=== PATIENT | female | born 1990 | race Caucasian/White ===

== ENCOUNTER 2024-11-14 10:48 | Outpatient (CLI) | payer OTHER, SELFPAY ==
--- NOTE | ~2024-11-14 | US_ITS ---
Pelvic ultrasound. Clinical History: First trimester , establish dates and viability Technique: Realtime transabdominal and transvaginal scanning of the pelvis was performed. Color flow Doppler and Doppler spectral analysis were performed. Findings: The uterus is anteverted, and contains an intrauterine gestation. [place]-rump length of 4.3 cm corresponds to an estimated gestational age of 11 weeks 1 day. heart rate is 153 bpm. Possib le ill-defined uterine fibroids. The right ovary measures 2.7 x 2.3 x 3.0 cm. No significant right ovarian or adnexal mass is seen. The left ovary measures 3.1 x 1.4 x 2.9 cm. No significant left ovarian or adnexal mass is seen. There is no evidence of free fluid in the cul de sac. Impression: Intrauterine gestation, with estimated gestational age of 11 weeks 1 day. heart rate is 153 bpm . Sonographic TIERRA is 06/04/2025. Reviewed, dictated and finalized at location . Impression: Intrauterine gestation, with estimated gestational age of 11 weeks 1 day. heart rate is 153 bpm. Sonographic TIERRA is 06/04/2025.
== END 2024-11-14 10:49 | disposition home or self-care (01) ==
LOC: MICIMG 10:49
PROVIDERS: PCP Nurse Practitioner Family; Visit Provider Nurse Practitioner Family
DX: O36.80X0 Pregnancy with inconclusive fetal viability, not applicable or unspecified (principal); Z3A.11 11 weeks gestation of pregnancy
CPT/HCPCS: 76801; 76817

== ENCOUNTER 2024-11-25 15:47 | Outpatient (CLI) | payer OTHER, SELFPAY ==
--- NOTE | ~2024-11-25 | US_ITS ---
EXAMINATION: US OB <= 14 weeks fetus DATE: 11/25/2024 16:08 INDICATION: Bleeding and cramping at the end of the first trimester TECHNIQUE: Real-time pelvic ultrasound utilizing both a transvaginal and transabdominal probe was pe rformed. The interpreting radiologist was not present for the study. COMPARISON: None. FINDINGS: The uterus measures 15.3 x 3.3 x 10.4 cm. There is an intrauterine gestational sac. A yolk sac and f etal pole are identified. The crown rump length measures 6.3 cm, which correlates with an estimated g estational age of 12 weeks and 5 days which is exactly concordant with assessment of gestational age based on ultrasound performed on 11/14/2024. heart motion is identified measuring 158 beats per m inute (bpm) by M-mode Doppler. There are couple small anechoic coracoid hematomas, one position along the caudal margin of the gestational sac measures 3.6 x 2.4 x 0.6 cm and the second along the right fundal side of the sac measuring 2.0 x 0.7 x 0.7 cm. There is a 3.5 x 1.7 x 3.8 cm heterogeneously hy poechoic region along the inner margin of the anteriorly developing placenta located between the edge of the placenta and the cord insertion likely related to extension of the subchorionic hematoma. The right and left ovaries are not visualized. There is no free fluid in the pelvis. IMPRESSION: 1. Single living fetus with heart rate of 158 bpm. 2. [place]-rump length of 6.3 cm which is exactly concordant with the previously estimated gestational age by ultrasound of 12 weeks 5 day(s) with ultrasound estimated date of delivery (TIERRA) of 06/04/2025. 3. Couple small subchorionic hematomas with extension of some of the hemorrhage along the superficial margin of the anterior developing placenta. Reviewed, dictated and finalized at location A. IMPRESSION: 1. Single living fetus with heart rate of 158 bpm. 2. [place]-rump length of 6.3 cm which is exactly concordant with the previously estimated gestational age by ultrasound of 12 weeks 5 day(s) with ultrasound es timated date of delivery (TIERRA) of 06/04/2025. 3. Couple small subchorionic hematomas with extension of some of the hemorrhage along the superficial margin of the anterior developing placenta.
== END 2024-11-25 15:48 | disposition home or self-care (01) ==
LOC: MICIMG 15:48
PROVIDERS: PCP Nurse Practitioner Family; Visit Provider Nurse Practitioner Family
DX: O41.8X10 Other specified disorders of amniotic fluid and membranes, first trimester, not applicable or unspecified (principal); Z3A.00 Weeks of gestation of pregnancy not specified
CPT/HCPCS: 76801

== ENCOUNTER 2024-11-28 10:46 | Outpatient (CLI) | payer OTHER, SELFPAY ==
--- OUTSIDE RECORDS SUMMARY | 2024-11-28 11:03 | XMS_ITS | Clinical Summary ---
Author Organization [facility] Address [address] [place] [address] Care Team Providers Care Educational Technology Coordinator Name Role Phone Sarah Roger PA-C Primary Care Provider [phone] Barry Pollack MD Unavailable [phone] Dina Hawkins Unavailable [phone] Mando Waite DO Unavailable Allergies Active Allergy Reactions Criticality Noted Date Comments Beeswax Rash Low 05/07/2024 Burning throat, chest tightness, headache Cinnamon Itching 09/05/2023 Dermatological Products, Misc. Other (see comment) 07/03/2023 Cinnamic aldehyde Propolis Other (see comment) 07/03/2023 Seen on patch testing Medications famotidine (PEPCID) 40 MG tabletIndicatio ns:Epigastric pain,RUQ pain Take 1 tablet (40 mg total) by mouth nightly at bedtime. 30 tablet 2 4 Active omeprazole (PRILOSEC) 40 MG capsuleIndicati ons:RUQ pain Take 1 capsule (40 mg total) by mouth every morning. 30 capsule 2 4 Active EPINEPHrine 0.3 MG/0.3ML injectionIndica tions:Anaphylax is Inject 0.3 mLs (0.3 mg total) into the muscle as needed for Anaphylaxis. 0.3 mg sc/intramuscular x 1 for anaphylactic reaction. May repeat dose x 1 after 5-15 mins. 1 each 1 4 Active Active Problems Problem Noted Date Diagnosed Date Right upper quadrant abdominal pain 12/22/2023 Compression fracture of thor acic vertebra with routine healing 10/02/2019 Thyroid nodule 06/26/2019 Overview (06/26/2019): repeat thyroid us in 1 year Chronic gastritis Immunizations Immunization Administration Dates Next Due Dtap 08/05/1997 Dtap (Acel-Immune) 03/07/1994, 3,1992,1992 Dtap (Generic) 03/07/1994, 3,1992,1992 HPV GARDASIL 9-VALENT 06/21/2019 Hepatitis A (Havrix 1440 El.U) 06/21/2019 Hepatitis B 03/07/1994,1992,1992 Hib Vaccine, Prp-Omp 11/23/1993,02/24/19 93,1992,1992 Influenza Adult (Generic) 03/02/2023,02/07/2022 MMR 08/05/1997,11/23/1993 MODERNA COVID-19 (12+) MRNA, LNP-S, PF, 100 MCG/ 0.5 ML DOSE 07/29/2020,07/01/2020 Opv 08/05/1997, 4,1992,1992 Td (Tenivac) preservative free 12/11/2006 Tdap (Adacel) 09/21/2019 Tdap (Generic) 11/21/2014 Family History Medical History Relation Comments Cancer Maternal Grandmother bone, lung, brain Diabetes Maternal Grandmother mvp Mother Relation Status Comments Maternal Grandmother Mother Social History Tobacco Use Types Packs/Day Years Used Date Smoking Tobacco: Never Smokeless Tobacco: Never Tobacco Cessation:Counseling Given: No Alcohol Use Standard Drinks/Week Comments Not Currently 0 (1 standard drink = 0.6 oz pur e alcohol) AUDIT-C Answer Date Recorded Frequency of Alcohol Consumption 2-4 times a mon th 06/21/2019 Average Number of Drinks 1 or 2 020 Frequency of Binge Drinking Not on file 11/2019 PHQ-2 Answer Date Recorded Patient Health Questionnaire-2 Score 0 06/27/2024 Comments No Sex and Gender Information Value Date Recorded Sex Assigned at Female 06/22/2024 9:35 PM DASHBOARD DEVELOPER Legal Sex Female 7:07 PM CDT Gender Identity Not on file Sexual Orientation Not on file Last Filed Vital Signs Vital Sign Reading Time Taken Comments Blood Pressure 135/79 07/12/2024 7:24 AM DASHBOARD DEVELOPER Pulse 89 07/12/2024 7:24 AM DASHBOARD DEVELOPER Temperature 36.8 C (98.3 F) 06/27/2024 7:40 AM DASHBOARD DEVELOPER Respiratory Rate 16 06/27/2024 7:40 AM DASHBOARD DEVELOPER Oxygen Saturation 100% 07/12/2024 7:24 AM DASHBOARD DEVELOPER Inhaled Oxygen Concentration - - Weight 83.9 kg (185 lb) 07/12/2024 7:24 AM DASHBOARD DEVELOPER Height 172.7 cm (5' 8) 07/12/2024 7:24 AM DASHBOARD DEVELOPER Body Mass Index 28.13 07/12/2024 7:24 AM DASHBOARD DEVELOPER Plan of Treatment Health Maintenance Due Date Last Done Comments Cervical Cancer Screening Pap Smear (Age 30 to 64) Every 3 Years 1992 Cervical Cancer Screening with HPV 06/26/2019 HPV Vaccines (2 - 3-dose series) 07/19/2019 06/21/2019 Annual Physical 12/22/2021 12/22/2020 Cervical Cancer Screening Pap with HPV Testing (Age 30 to 64) Every 5 Years 2022 06/25/2019 COVID-19 Vaccine ( season) 2024 07/29/2020, 07/01/2020 DTaP, Tdap and Td Vaccines (9 - Td or Tdap) 09/20/2029 09/21/2019, 05/25/2018, 11/21/2014, Additional history exists Meningococcal Vaccine Aged Out 05/25/2018 No kashmir cristy eligible based on patient's age to complete this topic Hepatitis B Vaccines Completed 12/20/2018, 07/16/2018, 05/30/2018, Additional history exists Hepatitis C Completed 09/05/2023, 07/09/2021, 06/24/2019 PHQ-2 (Physician [place]) Completed 06/27/2024 Meningococcal B Vaccine Aged Out No l onger eligible based on patient's age to complete this topic Pneumococcal Vaccine: Pediatrics (0 to 5 Years) and At-Risk Patients (6 to 49 Years) Aged Out No longer eligible based on patient's age to complete this topic RSV Immunizations Under 20 Months Aged Out No longer eligible based on patient's age to complete this topic Procedures Procedure Name Priority Date/Time Associated Diagnosis Comments HEPATITIS C ANTIBODY Routine 09/05/2023 8:21 AM CDT Screen for sexually transmitted diseases OUTSIDE CYTOPATH CERV/VAG INTERPRET (PAP) Routine 06/25/2019 from Last 3 Months or Most Recently Relevant to Health Maintenance Results * HEPATITIS C ANTIBODY (09/05/2023 8:21 AM CDT) HEPATITIS C AB NON-REACTI VE NON-REACTI VE 09/05/2023 3:38 PM CDT [facility] 09/05/2023 8:21 AM CDT Sarah Roger PA-C LABORATORY Final Resu lt Performing Organization Address [facility] de Phone Number [facility] [address] [place] [address], * PAP SMEAR WITH HPV (06/25/2019) 06/25/2019 Documents Scanned SCANNING Edited Result - Final Performing Organization Address City/[facility]/ZIP Co de Phone Number [facility] ONBASE from Last 3 Months or Most Recently Relevant to Health Maintenance Insurance ARE Care Teams Educational Technology Coordinator Relationship Specialty Start Date End Date Sarah Roger PA-C [address] [facility] [address] [place] [address] PCP - General PHYSICIAN NURSING RESIDENT 06/20/19 Barry Pollack MD [address] [facility] [address] [place], [place] [id number] OBGYN 06/21/19 Dina Hawkins PA [address] [place] [id number] PHYSICIAN NURSING RESIDENT 07/03/23 Mando Waite DO [address] [place] [id number] Surgeon ORTHOPAEDIC SURGERY 09/05/23
--- OUTSIDE RECORDS SUMMARY | 2024-11-28 11:03 | XMS_ITS | Encounter Summary ---
Author Organization [facility] Address [facility] [place] [address] Care Team Providers Care Electrical Service Technician Name Role Phone Sarah Roger PA-C Primary Care Provider [phone] Barry Pollack MD Unavailable Dina Hawkins Unavailable Mando Waite DO Unavailable Encounter Details Date Type Department Care Team (Late st Contact Info) Description 11/17/[address] [facility] [address] [place] [address] Sarah Roger PA-C [address] [place] [address] Question regarding CHLAM/GC/TRICHOMONAS PROFILE Social History Tobacco Use Types Packs/Day Years Used Date Smoking Tobacco: Never Smokeless Tobacco: Never Alcohol Use Standard Drinks/Week Comments Not Currently 0 (1 standard drink = 0.6 oz pur e alcohol) AUDIT-C Answer Date Recorded Frequency of Alcohol Consumption 2-4 times a mon06/21/2019 Average Number of Drinks 1 or 2 020 Frequency of Binge Drinking Not on file 11/2019 PHQ-2 Answer Date Recorded PHQ-2 Score - If the patient scores above 3, please move on to questions 3-9 0 11/16/2021 Comments No Sex and Gender Information Value Date Recorded Sex Assigned at Female 06/22/2024 9:35 PM BATTERY TESTER Legal Sex Female 7:07 PM CDT Gender Identity Not on file Sexual Orientation Not on file COVID-19 Exposure Response Date Recorded In the last 10 days, have yo u been in contact with someone who was confirmed or suspected to have Coronavirus/COVID-19? No / Unsure 11/16/2021 7:52 AM CDT documented as of this encounter Plan of Treatment Not on file documented as of this encounter Visit Diagnoses Not on filedocumented in this encounter Additional Health Concerns Infection Onset Date Last Indicated Resolved Time COVID-19 Rule Out 06/22/2024 06/22/2024 06/22/2024 10:55 PM BATTERY TESTER Assessment Noted Time PHQ-9 Depression Total Score: 0 12/23/19 21 9:57 AM CDT documented as of this encounter Care Teams Electrical Service Technician Relationship Specialty Start Date End Date Sarah Roger PA-C [address] [facility] [address] [place] [address] PCP - General PHYSICIAN PHILOSOPHY SPECIALIST 06/20/19 Barry Pollack MD [address] [facility] [address] [place], [place] [phone] OBGYSue 06/21/19 Dina Hawkins PA [address] [place] [address] PHYSICIAN PHILOSOPHY SPECIALIST 07/03/23 Mando Waite DO [address] [place] [address] Surgeon ORTHOPAEDIC SURGERY 09/05/23 documented as of this encounter
--- OUTSIDE RECORDS SUMMARY | 2024-11-28 11:03 | XMS_ITS | Clinical Summary ---
Author Organization [facility] Address [address] [address] Phone Care Team Providers Care Hair Spring Cutter Name Role Phone Khloe Tamayo APN, HALL SUPERVISOR Primary Care Provide r Allergies Active Allergy Reactions Criticality Noted Date Comments Cinnamon Rash 05/07/2024 Headache, burning throat, chest tightness Dermatological Products, Misc. Other (see Comments) 07/03/2023 Cinnamic aldehyde Propolis Itching,Other (see Comments) 07/03/2023 Seen on patch testing Beeswax Rash 05/07/2024 Burning throat, chest tightness, headache Medications famotidine (PEPCID) 40 MG Tablet Take 40 mg by mouth every evening. Active omeprazole (PriLOSEC) 40 MG CAPSULE DELAYED RELEASE Take 40 mg by mouth daily. Active EPINEPHrine (EPIPEN) 0.3 MG/0.3ML Solution Auto-injector 0.3 mg by Subcutaneous route once as needed. Active Active Problems Problem Noted Date Diagnosed Date Primary osteoarthritis of right shoulder 024 Shoulder arthritis 05/07/2024 Chronic right shoulder pain 08/15/2023 Resolved Problems Problem Noted Date Diagnosed Date Resolved Date Chronic gastritis 05/07/2024 05/07/2024 Right upper quadrant abdominal pain 12/22/2023 05/07/2024 Impingement syndrome of right shoulder region 09/04/1905/07/2024 Compression fracture of thor acic vertebra with routine healing 10/02/2019 05/07/2024 Thyroid nodule 06/26/2019 05/07/2024 Overview (05/07/2024): repeat thyroid us in 1 year Immunizations Immunization Administration Dates Next Due Adenovirus Vaccine 05/30/2018 Anthrax Vaccine 01/19/2023, 3,02/18/2022,01/21 DTAP VACCINE 08/05/1997 DTP Vaccine 03/07/1994, 3,1992,09/23 Hepatitis A And Hepatitis B Vaccine 12/20/2018,0 07/16/2018,05/30/2018 Hepatitis A Vaccine 06/21/2019 Hepatitis B Vaccine, Pediatric/adolescent 03/07/1994,1992,1992 Hib (PRP-OMP) Vaccine 1992 Hib Vaccine,unspecified Formulation 11/12,09/23/1993,02/24/1993,12/03 Human Papillomavirus (HPV) 9 -valent Vaccine 06/21/2019 Inactivated Polio Vaccine 05/25/2018 Influenza Vaccine, Quadrivalent, PF /10/2021,01/29/2021,05/11/2020,05/25 Influenza Vaccine,unspecifie d Formulation 03/02/2023,03/04/2019 MMR Vaccine 08/05/1997,11/23/1993 Meningococcal Vaccine 05/25/2018 OPV 08/05/1997, 4,1992,09/23 Oral Polio Vaccine, Unspecif ied Formulation 08/05/1997,03/07/1994,1992,09/23 TDAP Vaccine 09/21/2019,05/25/2018,11/21/2014 Td Vaccine (preservative free) 12/11/2006 Typhoid, ViCPs 02/07/2023,01/23/2021 Yellow Fever Vaccine 01/23/2021 Social History Tobacco Use Types Packs/Day Years Used Date Smoking Tobacco: Never Smokeless Tobacco: Never Tobacco Cessation:Counseling Given: Not Answered Alcohol Use Standard Drinks/Week Comments Yes 0 (1 standard drink = 0.6 oz pur e alcohol) [facility] Utilities Answer Date Recorded In the past 12 months has e electric, gas, oil, or water company threatened to shut off services in your home? No 06/18/2024 Social Connection and Isolation Panel Answer Date Recorded In a typical week, how many times do you talk on the phone with family, friends, or neighbors? Twice a week 06/18/19 How often do you get togethe r with friends or relatives? Once a week 06/18/2024 How often do you attend chur ch or sabianist services? 1 to 4 times per year 06/18/2024 Do you belong to any clubs o r organizations such as jainism groups, unions, fraternal or athletic groups, or school groups? No 06/18/2024 How often do you attend meet ings of the clubs or organizations you belong to? Never 06/18/2024 Are you , , di vorced, , never , or living with a partner? 06/18/2024 AUDIT-C Answer Date Recorded Q1: How often do you have a drink containing alc ohol? Monthly or less 06/18/2024 Q2: How many drinks containi ng alcohol do you have on a typical day when you are drinking? 1 or 2 06/18/2024 Q3: How often do you have si x or more drinks on one occasion? Never 06/18/2024 Overall Financial Resource Strain (CARDIA) Answe r Date Recorded How hard is it for you to pa y for the very basics like food, housing, medical care, and heating? Not hard at all 06/18/2024 [facility] - Occupational Stress Questionnaire Answer Date Recorded Do you feel stress - tense, restless, nervous, or anxious, or unable to sleep at night because your mind is troubled all the time - these days? Not at all 06/18/2024 Exercise Vital Sign Answer Date Recorde d On average, how many days pe r week do you engage in moderate to strenuous exercise (like a brisk walk)? 5 days 06/18/2024 On average, how many minutes do you engage in exercise at this level? 40 min 06/18/2024 Hunger Vital Sign Answer Date Recorded Within the past 12 months, y ou worried that your food would run out before you got the money to buy more. Never true 06/18/19 25 Within the past 12 months, t he food you bought just didn't last and you didn't have money to get more. Never true 06/18/2024 PRAPARE - Transportation Answer Date Re corded In the past 12 months, has l ack of transportation kept you from medical appointments or from getting medications? No 08/2024 In the past 12 months, has l ack of transportation kept you from meetings, work, or from getting things needed for daily living? No 06/18/2024 Housing Stability Vital Sign Answer Damian e Recorded In the last 12 months, was t here a time when you were not able to pay the mortgage or rent on time? No 06/18/2024 In the past 12 months, how m any times have you moved where you were living? 0 06/18/2024 At any time in the past 12 m [facility], were you homeless or living in a halfway (including now)? No 06/18/2024 Comments No Sex and Gender Information Value Date Recorded Sex Assigned at Female 07/19/2024 9:34 AM SUPERVISORY LIFEGUARD Legal Sex Female 1:50 PM CDT Gender Identity Female 07/19/2024 9:34 AM SUPERVISORY LIFEGUARD Sexual Orientation Not on file Last Filed Vital Signs Vital Sign Reading Time Taken Comments Blood Pressure 121/74 06/20/2024 1:08 PM SUPERVISORY LIFEGUARD Pulse 65 06/20/2024 1:08 PM SUPERVISORY LIFEGUARD Temperature 36.6 C (97.9 F) 06/20/2024 1:08 PM SUPERVISORY LIFEGUARD Respiratory Rate - - Oxygen Saturation 100% 06/20/2024 1:08 PM SUPERVISORY LIFEGUARD Inhaled Oxygen Concentration - - Weight 84.3 kg (185 lb 12.8 oz) 06/20/2024 1:08 PM SUPERVISORY LIFEGUARD Height 172.7 cm (5' 8) 05/07/2024 9:16 AM SUPERVISORY LIFEGUARD Body Mass Index 28.25 05/07/2024 9:16 AM SUPERVISORY LIFEGUARD Plan of Treatment Health Maintenance Due Date Last Done Comments Pap Smear 2013 Human Papillomavirus (HPV) Immunization (2 - 3-dose series) 07/19/2019 06/21/2019 Cervical Cancer Screening (CCS) 2022 HPV/Cotest 2022 SARS-COV-2 Immunization ( season) 2024 07/29/2020, 07/01/2020 Influenza Immunization (#1) 01/13/202501/13, 03/02/2023, 02/07/2022, Additional history exists DTaP/Tdap/Td Immunization (9 - Td or Tdap) 09/20/2029 09/21/2019, 05/25/2018, 11/21/2014, Additional history exists Respiratory Syncytial Virus (RSV) Immunization (Adult) (1 - 1-dose 75+ series) 08/05/2067 Meningococcal Immunization (ACWY) Aged Out 05/25/2018 No longer eligible based on patient's age to complete this topic Hepatitis B Immunization Completed 019, 07/16/2018, 05/30/2018, Additional history exists TdaP Immunization Discontinued 09/21/2019, , 11/21/2014 Hepatitis C Virus (HCV) Screening Completed 09/05/2023 Pneumococcal Immunization Combined Aged Out No longer eligible based on patient's age to complete this topic Rotavirus Immunization Aged Out No lo nger eligible based on patient's age to complete this topic Insurance CLAIMS Care Teams Hair Spring Cutter Relationship Specialty Start Date End Date Khloe Tamayo APN, HALL SUPERVISOR [address] [place] [phone] PCP - General Orthopaedic Surgery 05/07/24
--- OUTSIDE RECORDS SUMMARY | 2024-11-28 11:03 | XMS_ITS | Encounter Summary ---
Author Organization [facility] Address [address] [place] [address] Phone Care Team Providers Care Leaf Coverer Name Role Phone Khloe Tamayo APN, COMMERCIAL OR INSTITUTIONAL CLEANER Primary Care Provide r Encounter Details Date Type Department Care Team (Late st Contact Info) Description 08/05/2024 Lab Requisition [facility] Laboratory Services [address] [facility] [place] [address] Alpesh Salinas MD [address] [place] [address] Encounter for general adult medical examination without abnormal findings Social History Tobacco Use Types Packs/Day Years Used Date Smoking Tobacco: Never Smokeless Tobacco: Never Alcohol Use Standard Drinks/Week Comments Yes 0 (1 standard drink = 0.6 oz pur e alcohol) [facility] Utilities Answer Date Recorded In the past 12 months has [employer], gas, oil, or water [employer] threatened to shut off services in your home? No 06/18/2024 Social Connection and Isolation Panel Answer Date Recorded In a typical week, how many times do you talk on the phone with family, friends, or neighbors? Twice a week 06/18/19 How often do you get togethe r with friends or relatives? Once a week 06/18/2024 How often do you attend chur or mormonism services? 1 to 4 times per year 06/18/2024 Do you belong to any clubs o r organizations such as orthodoxy groups, unions, fraternal or athletic groups, or [...] and heating? Not hard at all 06/18/2024 [facility] - Occupational Stress Questionnaire Answer Date Recorded [...] any time in the past 12 m [facility], were you homeless or living in a intermediate (including now)? No 06/18/2024 Comments No Sex and Gender Information Value Date Recorded Sex Assigned at Female 07/19/2024 9:34 AM CHEMICAL ECONOMIST Legal Sex Female 1:50 PM CDT Gender Identity Female 07/19/2024 9:34 AM CHEMICAL ECONOMIST Sexual Orientation Not on file documented as of this encounter Plan of Treatment Not on file documented as of this encounter Procedures Procedure Name Priority Date/Time Associated Diagnosis Comments CMP (COMPREHENSIVE METABOLIC PANEL) Routine 08/05/2024 8:22 AM CDT Encounter for general adult medical examination without abnormal findings HEMOGLOBIN A1C W/ ESTIMATED GLUCOSE Routine 08/05/2024 8:22 AM CDT Encounter for general adult medical examination without abnormal findings BILIRUBIN, INDIRECT WGH Routine 08/05/2024 8:22 AM CDT Encounter for general adult medical examination without abnormal findings CBC WITH AUTO DIFFERENTIAL Routine 08/05/2024 8:22 AM CDT Encounter for general adult medical examination without abnormal findings THYROID STIMULATING HORMONE (TSH) Routine 08/05/2024 8:22 AM CDT Encounter for general adult medical examination without abnormal findings LIPID PANEL Routine 08/05/2024 8:22 AM CDT Encounter for general adult medical examination without abnormal findings IRON (FE) Routine 08/05/2024 8:22 AM CDT Encounter for general adult medical examination without abnormal findings CMP (COMPREHENSIVE METABOLIC PANEL) Routine 08/05/2024 8:22 AM CDT Encounter for general adult medical examination without abnormal findings BILIRUBIN DIRECT (CONJUGATED) Routine 08/05/2024 8:22 AM CDT Encounter for general adult medical examination without abnormal findings documented in this encounter Results * HEMOGLOBIN A1C W/ ESTIMATED GLUCOSE (08/05/2024 8:22 AM CDT) HGB-A1C 4.9 4.0 - 6.0 % 08/05/2024 9:41 AM CDT [facility] Est Average Glucose 93.9 mg/dL 08/05/2024 9:41 AM CDT [facility] Blood No Phlebotomy Charged / Unknown 08/05/2024 8:22 AM CDT 08/05/2024 8:22 AM CDT us Alpesh Salinas MD CHEMISTRY ORDERABLES Final Re sult Performing Organization Address City/[facility]/ZIP Co de Phone Number [facility] [address] [place] [address], [place] [phone] * BILIRUBIN, INDIRECT HST (08/05/2024 8:22 AM CDT) BILIRUBIN, INDIRECT 0.4 0.0 - 1.1 mg/dL 08/05/2024 9:35 AM CDT [facility] Blood No Phlebotomy Charged / Unknown 08/05/2024 8:22 AM CDT 08/05/2024 8:22 AM CDT us Alpesh Salinas MD CHEMISTRY ORDERABLES Final Re sult Performing Organization Address City/[facility]/ZIP Co de Phone Number [facility] [address] [place] [address], [place] [phone] * BILIRUBIN DIRECT (CONJUGATED) (08/05/2024 8:22 AM CDT) BILIRUBIN,DIREC T 0.0 0.0 - 0.3 mg/dL 08/05/2024 9:35 AM CDT [facility] Blood No Phlebotomy Charged / Unknown 08/05/2024 8:22 AM CDT 08/05/2024 8:22 AM CDT us Alpesh Salinas MD CHEMISTRY ORDERABLES Final Re sult Performing Organization Address [facility] Co de Phone Number [facility] [address] [place] [address], [place] [phone] * THYROID STIMULATING HORMONE (TSH) (08/05/2024 8:22 AM CDT) TSH 2.080 0.465 - 4.680 mIU/L 08/05/2024 10:03 AM CDT [facility] Blood No Phlebotomy Charged / Unknown 08/05/2024 8:22 AM CDT 08/05/2024 8:22 AM CDT us Alpesh Salinas MD CHEMISTRY ORDERABLES Final Re sult Performing Organization Address [facility] de Phone Number [facility] [address] [place] [address], [place] [phone] * IRON (FE) (08/05/2024 8:22 AM CDT) IRON 164 37 - 170 mcg/dL 08/05/2024 9:35 AM CDT [facility] Blood No Phlebotomy Charged / Unknown 08/05/2024 8:22 AM CDT 08/05/2024 8:22 AM CDT us Alpesh Salinas MD CHEMISTRY ORDERABLES Final Re sult Performing Organization Address [facility] Co de Phone Number [facility] [address] [place] [address], [place] [phone] * (ABNORMAL) LIPID PANEL (08/05/2024 8:22 AM CDT) CHOLESTEROL 153 127 - 200 mg/dL 08/05/2024 9:35 AM CDT [facility] TRIGLYCERIDES 68 0 - 200 mg/dL 08/05/2024 9:35 AM CDT [facility] HDL CHOLESTEROL 62(H) 40 - <60 mg/dL 08/05/2024 9:35 AM [facility] LDL 77 0 - 130 mg/dL 08/05/2024 9:35 AM [facility] VLDL 14 2 - 30 mg/dL 08/05/2024 9:35 AM [facility] CHOL/HDL RATIO 2.5 0.0 - 5.0 08/05/2024 9:35 AM [facility] NON-HDL CHOLESTEROL 91 <130 mg/dL 08/05/2024 9:35 AM [facility] Blood No Phlebotomy Charged / Unknown 08/05/2024 8:22 AM CDT 08/05/2024 8:22 AM CDT us Alpesh Salinas MD CHEMISTRY ORDERABLES Final Re sult [facility] [address] [place] [address], [place] [phone] * CMP (COMPREHENSIVE METABOLIC PANEL) (08/05/2024 8:22 AM CDT) SODIUM 138 137 - 145 mmol/L 08/05/2024 9:35 AM [facility] POTASSIUM 4.1 3.5 - 5.1 mmol/L 08/05/2024 9:35 AM [facility] CHLORIDE 106 98 - 107 mmol/L 08/05/2024 9:35 AM [facility] CO2, VENOUS 26 22 - 30 mmol/L 08/05/2024 9:35 AM [facility] GLUCOSE 76 70 - 106 mg/dL 08/05/2024 9:35 AM [facility] BUN 17 7 - 17 mg/dL 08/05/2024 9:35 AM [facility] CREATININE, BLOOD 0.70 0.52 - 1.04 mg/dL 08/05/2024 9:35 AM [facility] ALKALINE PHOSPHATASE 51 38 - 126 U/L 08/05/2024 9:35 AM [facility] SGPT (ALT) 18 1 - 34 U/L 08/05/2024 9:35 AM [facility] SGOT (AST) 18 14 - 36 U/L 08/05/2024 9:35 AM [facility] ALBUMIN 4.5 3.5 - 5.0 g/dL 08/05/2024 9:35 AM [facility] T BILI 0.6 0.2 - 1.3 mg/dL 08/05/2024 9:35 AM [facility] TOTAL PROTEIN 7.6 6.3 - 8.2 g/dL 08/05/2024 9:35 AM [facility] CALCIUM 9.1 8.4 - 10.2 mg/dL 08/05/2024 9:35 AM [facility] ANION GAP 6.0 6.0 - 16.0 mmol/L 08/05/2024 9:35 AM [facility] BUN/CREATININE RATIO 24 7 - 30 ratio 08/05/2024 9:35 AM [facility] A/G RATIO 1.5 0.9 - 2.3 08/05/2024 9:35 AM [facility] GLOBULIN 3.1 2.2 - 3.9 g/dL 08/05/2024 9:35 AM [facility] GFR, ESTIMATED >60 >60 08/05/2024 9:35 AM [facility] OSMOLALITY 276 273 - 304 mOsm/kg 08/05/2024 9:35 AM [facility] Blood No Phlebotomy Charged / Unknown 08/05/2024 8:22 AM CDT 08/05/2024 8:22 AM CDT us Alpesh Salinas MD CHEMISTRY ORDERABLES Final Re sult [facility] [address] [facility] [place] [address], [place] [phone] * (ABNORMAL) CBC WITH AUTO DIFFERENTIAL (08/05/2024 8:22 AM CDT) WBC 6.29 3.88 - 10.35 10(3)/mcL 08/05/2024 8:37 AM [facility] RBC 4.44 3.78 - 5.29 10(6)/mcL 08/05/2024 8:37 AM [facility] HEMOGLOBIN (HGB) 13.4 12.0 - 16.0 g/dL 08/05/2024 8:37 AM [facility] HEMATOCRIT (HCT) 39.7 37.0 - 47.0 % 08/05/2024 8:37 AM [facility] MCV 89.4 82.0 - 100.0 fL 08/05/2024 8:37 AM [facility] MCH 30.2 25.9 - 32.7 pg 08/05/2024 8:37 AM [facility] MCHC 33.8 31.0 - 34.1 g/dL 08/05/2024 8:37 AM [facility] RDW 12.5 11.8 - 15.7 % 08/05/2024 8:37 AM [facility] PLATELET COUNT 195 150 - 450 10(3)/mcL 08/05/2024 8:37 AM [facility] MPV 9.9 8.7 - 12.2 fL 08/05/2024 8:37 AM [facility] NEUTROPHILS 46.2 40.0 - 75.0 % 08/05/2024 8:37 AM [facility] IMMATURE GRANULOCYTE 0.3 0.0 - 2.0 % 08/05/2024 8:37 AM [facility] LYMPHOCYTES 38.8 20.0 - 40.0 % 08/05/2024 8:37 AM [facility] MONOCYTES 8.4 0.0 - 10.0 % 08/05/2024 8:37 AM [facility] EOSINOPHILS 5.7(H) 0.0 - 4.0 % 08/05/2024 8:37 AM [facility] BASOPHILS 0.6 0.0 - 1.0 % 08/05/2024 8:37 AM [facility] ABSOLUTE NEUTROPHILS 2.90 1.50 - 8.00 10(3)/mcL 08/05/2024 8:37 AM [facility] Blood No Phlebotomy Charged / Unknown 08/05/2024 8:22 AM CDT 08/05/2024 8:22 AM CDT us Alpesh Salinas MD HEMATOLOGY ORDERABLES Final R esult Performing Organization Address City/State/[facility] Co de Phone Number [facility] [address] [facility] [place] [address], documented in this encounter Visit Diagnoses Diagnosis Encounter for general adult medical examination without abnormal findings Routine general medical examination at a health care facility documented in this encounter Care Teams Leaf Coverer Relationship Specialty Start Date End Date Khloe Tamayo APN, COMMERCIAL OR INSTITUTIONAL CLEANER [address] [facility] [place] [address] PCP - General Orthopaedic Surgery 05/07/24 documented as of this encounter
--- OUTSIDE RECORDS SUMMARY | 2024-11-28 11:03 | XMS_ITS | Encounter Summary ---
Author Organization [facility] Address [facility] [place] [address] Care Team Providers Care Linen Room Worker Name Role Phone Sarah Roger PA-C Primary Care Provider [phone]- [phone] Barry Pollack MD Unavailable [phone] Dina Hawkins Unavailable [phone] Manod Waite DO Unavailable Encounter Details Date Type Department Care Team (Late st Contact Info) Description 06/03/2002 Abstract [facility] Clinics Conversion Md, Generic Conversion, Social History Tobacco Use Types Packs/Day Years Used Date Smoking Tobacco: Never Assessed Comments Unknown Sex and Gender Information Value Date Recorded Sex Assigned at Female 06/22/2024 9:35 PM POWER GENERATING PLANT OPERATOR Legal Sex Female 7:07 PM CDT Gender Identity Not on file Sexual Orientation Not on file documented as of this encounter Plan of Treatment Not on file documented as of this encounter Visit Diagnoses Not on filedocumented in this encounter Additional Health Concerns Infection Onset Date Last Indicated Resolved Time COVID-19 Rule Out 06/22/2024 06/22/2024 06/22/2024 10:55 PM POWER GENERATING PLANT OPERATOR documented as of this encounter Care Teams Linen Room Worker Relationship Specialty Start Date End Date Sarah Roger PA-C [address] [facility] [address] [place] [address] PCP - General PHYSICIAN RESTAURANT KITCHEN AND SERVICE MANAGER 06/20/19 Barry Pollack MD [address] [place] [address] OBGYN 06/21/19 Dina Hawkins PA [address] [place] [address] PHYSICIAN RESTAURANT KITCHEN AND SERVICE MANAGER 07/03/23 Mando Waite DO [address] [place] [phone] Surgeon ORTHOPAEDIC SURGERY 09/05/23 documented as of this encounter
--- OUTSIDE RECORDS SUMMARY | 2024-11-28 11:03 | XMS_ITS | Encounter Summary ---
Author Organization [facility] Address [facility] [place] [address] Care Team Providers Care Tile Ditcher Name Role Phone Sarah Roger PA-C Primary Care Provider [phone]- [phone] Barry Pollack MD Unavailable [phone] Dina Hawkins Unavailable [phone] Mando Waite DO Unavailable Encounter Details Date Type Department Care Team (Late st Contact Info) Description 11/16/2021 Net 263 Message [facility] [address] [place] [address] Sarah Roegr PA-C [address] [place] [address] Covid vaccine card Social History Tobacco Use Types Packs/Day Years [...] Sex Assigned at Female 06/22/2024 9:35 PM WELDING FOREMAN Legal Sex Female 7:07 PM CDT Gender [...] Rule Out 06/22/2024 06/22/2024 06/22/2024 10:55 PM WELDING FOREMAN Assessment Noted Time PHQ-9 Depression Total Score: 0 12/23/19 9:57 AM CDT documented as of this encounter Care Teams Tile Ditcher Relationship Specialty Start Date End Date Sarah Roger PA-C [address] [facility] [address] [place] [address] PCP - General PHYSICIAN LABORER OPERATOR 06/20/19 Barry Pollack MD [address] [facility] [address] [place], [place] [address] OBGYN 06/21/19 Dina Hawkins PA [address] [place] [address] PHYSICIAN LABORER OPERATOR 07/03/23 Mando Waite DO [address] [facility] [place] [address] Surgeon ORTHOPAEDIC SURGERY 09/05/23 documented as of this encounter
--- OUTSIDE RECORDS SUMMARY | 2024-11-28 11:04 | XMS_ITS | Encounter Summary ---
Author Organization [facility] Address [facility] [place] [address] Care Team Providers Care Motor Equipment Lieutenant Name Role Phone Sarah Roger PA-C Primary Care Provider [phone] Barry Pollack MD Unavailable Dina Hawkins Unavailable Mando Waite DO Unavailable Encounter Details Date Type Department Care Team (Late st Contact Info) Description 03/13/2017 Abstract [facility] Logan Rivas MD [address] [address] Social History Tobacco Use Types Packs/Day Years Used Date Smoking Tobacco: Never Assessed Comments Unknown Sex and Gender Information Value Date Recorded Sex Assigned at Female 06/22/2024 9:35 PM SETTER COLD ROLLING MACHINE Legal Sex Female 7:07 PM CDT Gender Identity Not on file Sexual Orientation Not on file documented as of this encounter Miscellaneous Notes * Letter - Logan Rivas MD - 03/13/2017 12:00 AM CDT Mar 13, 2017 Juice Stern [address] [place] [id number] Dear Juice Stenr, Thank you for choosing [facility] for your health care needs. We appreciate the opportunity to help you maintain your well being. You recently had labs drawn. Your results came back normal. Please remember to follow up as discussed at your last appointment .If you have any questions please feel free to call the office at [phone], Option #3 or Option #1 to make an appointment to discuss these results. Respectfully Yours, Electronically Signed by: Logan Rivas MD Cc: Patients Medical Record ER COLD ROLLING MACHINE documented in this encounter Plan of Treatment Not on file documented as of this encounter Visit Diagnoses Not on filedocumented in this encounter Additional Health Concerns Infection Onset Date Last Indicated Resolved Time COVID-19 Rule Out 06/22/2024 06/22/2024 06/22/2024 10:55 PM SETTER COLD ROLLING MACHINE documented as of this encounter Care Teams Motor Equipment Lieutenant Relationship Specialty Start Date End Date Sarah Roger PA-C [address] [facility] [address] [place] [address] PCP - General PHYSICIAN SENIOR BENEFITS MANAGER 06/20/19 Barry Pollack MD [address] [facility] [address] [place] [address] OBGYN 06/21/19 Dina Hawkins PA [address] [place] [address] PHYSICIAN SENIOR BENEFITS MANAGER 07/03/23 Mando Waite DO [address] [place] [id number] Surgeon ORTHOPAEDIC SURGERY 09/05/23 documented as of this encounter
--- OUTSIDE RECORDS SUMMARY | 2024-11-28 11:04 | XMS_ITS | Encounter Summary ---
Author Organization [facility] Address [facility] [place] [address] Care Team Providers Care Detail Assembler Name Role Phone Sarah Roger PA-C Primary Care Provider [phone]- [phone] Barry Pollack MD Unavailable [phone] Dina Hawkins Unavailable Mando Waite DO Unavailable Encounter Details Date Type Department Care Team (Late st Contact Info) Description 07/24/2023 [employer] Message [facility] [address] [place] [address] Sarah Roger PA-C [address] [place] [address] [employer] Social History Tobacco Use Types Packs/Day Years [...] Date Recorded Patient Health Questionnaire-2 Score 0 07/04/2023 Comments No Sex and Gender Information Value Date Recorded Sex Assigned at Female 06/22/2024 9:35 PM ENROLLMENT MANAGEMENT VICE PRESIDENT Legal Sex Female 7:07 PM CDT Gender Identity Not on file Sexual Orientation Not on file documented as of this encounter Plan of Treatment Not on file documented as of this encounter Visit Diagnoses Not on filedocumented in this encounter Additional Health Concerns Infection Onset Date Last Indicated Resolved Time COVID-19 Rule Out 06/22/2024 06/22/2024 06/22/2024 10:55 PM ENROLLMENT MANAGEMENT VICE PRESIDENT Assessment Noted Time PHQ-9 Depression Total Score: 0 12/23/19 21 9:57 AM CDT documented as of this encounter Care Teams Detail Assembler Relationship Specialty Start Date End Date Sarah Roger PA-C [address] [facility] [address] [place] [address] PCP - General PHYSICIAN AD CLERK 06/20/19 Barry Pollack MD [address] [facility] [address] [place], [place] [address] OBGYN 06/21/19 Dina Hawkins PA [address] [place] [address] PHYSICIAN AD CLERK 07/03/23 Mando Waite DO [address] [place] [address] Surgeon ORTHOPAEDIC SURGERY 09/05/23 documented as of this encounter
--- OUTSIDE RECORDS SUMMARY | 2024-11-28 11:04 | XMS_ITS | Continuity of Care Document ---
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 Vision Testing Extensive Color Vision Testing 33956 06/12/19 19 [place] Ophthalmological New Patient Start Comprehensive Care Ophthalmological New Patient Start Comprehensive Care 80520 06/12/19 19 [place] Screening Test Of Visual Acuity, Quantitative, Bilateral Screening Test Of Visual Acuity, Quantitative, Bilateral 16478 06/06/19 19 MARIANNA GARCIA [facility] ECG 12-Lead With Interpretation And Report ECG 12-Lead With Interpretation And Report [id number] 06/06/19 19 MARIANNA GARCIA Extensive Color Vision Testing Extensive Color Vision Testing 99289 06/06/19 19 MARIANNA GARCIA Visual Function Screening Visual Function Screening 24656 06/06/19 19 MARIANNA GARCIA Threshold Audiogram (Pure Tone) Threshold Audiogram (Pure Tone) 75510 05/29/19 19 BREE TRUJILLO Non-Physician Phone Call To Patient/Provider Brief (5-10min) Non-Physician Phone Call To Patient/Provider Brief (5-10min) [id number] KHAI MACKEY [facility] Threshold Audiogram (Pure Tone) Automated Threshold Audiogram (Pure Tone) Automated 0208T HEMALATHA QUINONES Screening Test Of Visual Acuity, Quantitative, Bilateral Screening Test Of Visual Acuity, Quantitative, Bilateral 44406 TIANA AMBRIZ Visual Arrieta Test Limited Examination Visual Arrieta Test Limited Examination 48649 TIANA AMBRIZ Removal of impacted tooth - completely bony 05/15/19 10 0055C-375t h [facility] Pure tone audiometry (threshold); air only Pure tone audiometry (threshold); air only 25313 0055C-375t h [facility] PURE TONE AUDIOMTRY THRESHOLD COMPUTER DEV AIR PURE TONE AUDIOMTRY THRESHOLD COMPUTER DEV AIR 0208T 0055C-375t h [facility] Social History Combined list of available smoking, tobacco, and other social history from Department of Defense and Veterans Affairs facilities. Social History Type Response Date Comment Sour e This section is an empty social history section. DoD Tobacco Never - tobacco user Other Tobacco use:. Ambulatory Pharmacy Sexual Orientation Ambula tory Pharmacy Gender identity Ambulator y Pharmacy Sex Representation Female (finding) Unknown Organization Assessment and Plan Combined list of future care activities from Department of Defense and Veterans Affairs facilities (e.g., assessment and plan notes, appointments, orders, and referrals). Additional future care activities may be listed in the Plan of Care section. Result Assessment and Plan Date Source Assessment and Plan Extracted from:Title : [facility] Author: SHAAN GONSALEZ PA Date: 03/03/23 1. E XAM, OCCUPATIONAL, MCC OR SEPARATION FROM [place], LONG A: 32 y/o female 932d [place] member was evaluated via [id number] encounter. A review of members 2807-1 was accomplished and reconciled with entries in EHR. A complete EHR review was accomplished including and SM is found fit for separation. All discrepancies were evaluated and documented in this encounter. A focal PE was accomplished for concerns not previously addressed in EHR. P: - IMR: GREEN - SM found fit for separation - [facility] documents uploaded to E HR Extracted from:Title: FLT MED: RTFS- UTI Author: CECILE WEINER MD Date: 05/05/21 1. U TI - Urinary tract infection resolved, see below. 2. F ollow-up examination normal H ere for RTFS after: U TI s/p abx course completion (7d) , no residual symptoms or sequlae. RTFS, 2992 issued; [facility] MEMBER MEETS RETENTIONS STANDARDS NO DAWG OR IRILO REFERRAL NEEDED FOR THIS ENCOUNTER NO DR/MR/FR RESULTING FROM THIS ENCOUNTER Capt Cecile Thomas MD Flight Surgeon, 60 OMRS, [employer] 11/28/2024 0055C-375th [place] Assessment and Plan Extracted from:Title : [facility] Author: SHAAN GONSALEZ PA Date: 03/03/23 1. 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 A review of members 2807-1 was accomplished and reconciled with entries in EHR. A complete EHR review was accomplished including and SM is found fit for separation. All discrepancies were evaluated and documented in this encounter. A focal PE was accomplished for concerns not previously addressed in EHR. P: - IMR: GREEN - SM found fit for separation - [facility] documents uploaded to E Extracted from:Title: FLT MED: RTFS- UTI Author: CECILE WEINER MD Date: 05/05/21 1. U TI - Urinary tract infection resolved, see below. 2. F ollow-up examination normal H ere for RTFS after: U TI s/p abx course completion (7d) , no residual symptoms or sequlae. RTFS, 2992 issued; [facility] MEMBER MEETS RETENTIONS STANDARDS NO DAWG OR IRILO REFERRAL NEEDED FOR THIS ENCOUNTER NO DR/MR/FR RESULTING FROM THIS ENCOUNTER Capt Cecile Thomas MD Flight Surgeon, 60 OMRS, [employer] 11/28/[address] [place] [address] Functional Status Combined list of recent functional and cognitive assessments recorded at Department of Defense and Veterans Affairs (VA).VA Functional [place] Measurement (FIM) Scale: 1 = Total Assistance (Subject = 0% +), 2 = Maximal Assistance (Subject = 25% +), 3 = Moderate Assistance (Subject = 50% +), 4 = Minimal Assistance (Subject = 75% +), 5 = Supervision, 6 = Modified [place] (Device), 7 = Complete [place] (Timely, Safely). Assessment Date/Time Source Assessment Type Assessment Skill Assessment Score Assessment Details No data available for this section
--- OUTSIDE RECORDS SUMMARY | 2024-11-28 11:04 | XMS_ITS | Data Portability ---
Author Organization [facility] Address [address] [place] [address] Assessment No assessment recorded. Plan of Treatment Reminders Order Date Submit Date Provider Last Modified By Organization Details Last Modified Time Details Appointments None record ed. Lab None record ed. Referral None record ed. Procedures None record ed. Surgeries None record ed. Imaging None record ed. Medication Orders None record ed. Patient Targets Encounter Date Encounter Id Patient Goals Patient Target Last Modified By Organization Details Last Modified Time 09/06/2023 [id number] In 4 weeks: 1. Improve to 5/5 shoulder ER strength 2. Improve to 5/5 serratus anterior strength 3. Improve to 5/5 middle trapezius strength 4. Improve to 4+/5 lower trapezius strength Not available 09/06/2023 17:08:02 09/29/2023 [id number] In 4 weeks: 1. Improve to 5/5 shoulder ER strength (MET) 2. Improve to 5/5 serratus anterior strength (good progress) 3. Improve to 5/5 middle trapezius strength (good progress) 4. Improve to 4+/5 lower trapezius strength (met) Not available 09/29/2023 09:54:26 Patient Instructions Encounter Date Encounter Id Patient Instructions Last Modified By Organization Details Last Modified Time 10/11/2023 [id number] I discussed with Juice that my recommendation for her today is to try a steroid injection into her shoulder to see if this will offer her some relief. I explained that it can take up to 5 days for the full benefit of the steroid to work. I told her she can continue to utilize any conservative measures that she has been using for symptom control. I told her that she can contact our office and let us know how she is doing and we can go from there as far as a further treatment plan. She was instructed to call with any questions or concerns. She voiced understanding and agreed with this plan of care. Patient was seen by Rosi Tamayo NP, and the diagnoses, problems, and treatment plan for the patient has been reviewed and approved by me, Dr. Mando Waite. [email or web address] Not available 10/11/2023 17:09:36 Hospital Discharge Instructions Patient Instructions None recorded. Patient Goals None recorded. Results Created Date Observation Date Name Description Value Unit Range Abnormal Flag Note LastModifiedBy Organization Detail LastModifiedTime 06/12/19 23 06/12/2022 Strep tococ cus pyoge paco DNA [Pres ence] in Throa t by MARISABEL with probe detec tion STREP GRP A PCR Negati ve NEGATI VE Not Available [facility] (Lab) [address], [place], [address], Not Available 07/27/19 23 07/26/2022 CBC W Diffe renti al panel , metho d unspe cifie d - Blood WBC 6.1 10*3 3.9-10 .4 Not Available [facility] (Lab) [address], [place], [address], Not Available 07/27/19 23 07/26/2022 CBC W Diffe renti al panel , metho d unspe cifie d - Blood RBC 4.27 10*6 3.78-5 .29 Not Available [facility] (Lab) [address], [place], [address], Not Available 07/27/19 23 07/26/2022 CBC W Diffe renti al panel , metho d unspe cifie d - Blood HGB 13.1 g/dl 12.0-1 6.0 Not Available [facility] (Lab) [address], [place], [address], Not Available 07/27/19 23 07/26/2022 CBC W Diffe renti al panel , metho d unspe cifie d - Blood HCT 37.7 % 37.0-4 7.0 Not Available [facility] (Lab) [address], [place], [address], Not Available 07/27/19 23 07/26/2022 CBC W Diffe renti al panel , metho d unspe cifie d - Blood MCV 88.3 fl 82.0-1 00.0 Not Available [facility] (Lab) [address], [place], [address], Not Available 07/27/19 23 07/26/2022 CBC W Diffe renti al panel , metho d unspe cifie d - Blood MCH 31 pg 26-33 Not Available [facility] (Lab) [address], [place], [address], Not Available 07/27/19 23 07/26/2022 CBC W Diffe renti al panel , metho d unspe cifie d - Blood MCHC 35 g/dl 31-34 Not Available [facility] (Lab) [address], [place], [address], Not Available 07/27/19 23 07/26/2022 CBC W Diffe renti al panel , metho d unspe cifie d - Blood RDW 12.3 % 11.8-1 5.7 Not Available [facility] (Lab) [address], [place], [address], Not Available 07/27/19 23 07/26/2022 CBC W Diffe renti al panel , metho d unspe cifie d - Blood PLT 204 10*3 150-45 0 Not Available [facility] (Lab) [address], [place], [address], Not Available 07/27/19 23 07/26/2022 CBC W Diffe renti al panel , metho d unspe cifie d - Blood MPV 9.4 fl 8.7-12 .2 Not Available [facility] (Lab) [address], [place], [address], Not Available 07/27/19 23 07/26/2022 CBC W Diffe renti al panel , metho d unspe cifie d - Blood NEUT% 51.1 % 40.0-7 5.0 Not Available [facility] (Lab) [address], [place], [address], Not Available 07/27/19 23 07/26/2022 CBC W Diffe renti al panel , metho d unspe cifie d - Blood IMGRANS% 0.2 % 0.0-2. 0 Not Available [facility] (Lab) [address], [place], [address], Not Available 07/27/19 23 07/26/2022 CBC W Diffe renti al panel , metho d unspe cifie d - Blood LYMPH% 38.2 % 20.0-4 0.0 Not Available [facility] (Lab) [address], [place], [address], Not Available 07/27/19 23 07/26/2022 CBC W Diffe renti al panel , metho d unspe cifie d - Blood MONO% 6.7 % 0.0-10 .0 Not Available [facility] (Lab) [address], [place], [address], Not Available 07/27/19 23 07/26/2022 CBC W Diffe renti al panel , metho d unspe cifie d - Blood EOS% 3.5 % 0.0-4. 0 Not Available [facility] (Lab) [address], [place], [address], Not Available 07/27/19 23 07/26/2022 CBC W Diffe renti al panel , metho d unspe cifie d - Blood BASOS% 0.3 % 0.0-1. 0 Not Available [facility] (Lab) [address], [place], [address], Not Available 07/27/19 23 07/26/2022 CBC W Diffe renti al panel , metho d unspe cifie d - Blood ANC 3.11 10^3/ uL 1.50-8 .00 Not Available [facility] (Lab) [address], [place], [address], Not Available 07/27/19 23 07/26/2022 CBC W Diffe renti al panel , metho d unspe cifie d - Blood _ Not Available [facility] (Lab) [address], [place], [address], Not Available 07/27/19 23 07/26/2022 Compr ehens mihaela metab olic 2000 panel - Serum or Plasm a NA 140 mmol/ L 137-14 5 Not Available [facility] (Lab) [address], [place], [address], Not Available 07/27/19 23 07/26/2022 Compr ehens mihaela metab olic 2000 panel - Serum or Plasm a K+ 3.9 mmol/ L 3.5-5. 1 Not Available [facility] (Lab) [address], [place], [address], Not Available 07/27/19 23 07/26/2022 Compr ehens mihaela metab olic 2000 panel - Serum or Plasm a CL 106 mmol/ L 98-107 Not Available [facility] (Lab) [address] [place], [address], Not Available 07/27/19 23 07/26/2022 Compr ehens mihaela metab olic 2000 panel - Serum or Plasm a CO2 29 mmol/ L 22-30 Not Available [facility] (Lab) [address], [place], [address], Not Available 07/27/19 23 07/26/2022 Compr ehens mihaela metab olic 2000 panel - Serum or Plasm a BUN 15.0 mg/dL 7.0-17 .0 Not Available [facility] (Lab) [address], [place], [address], Not Available 07/27/19 23 07/26/2022 Compr ehens mihaela metab olic 2000 panel - Serum or Plasm a CREAT 0.8 mg/dl 0.5-1. 0 Not Available [facility] (Lab) [address], [place], [address], Not Available 07/27/19 23 07/26/2022 Compr ehens mihaela metab olic 2000 panel - Serum or Plasm a GLUC 98 mg/dL 70-106 Not Available [facility] (Lab) [address], [place], [address], Not Available 07/27/19 23 07/26/2022 Compr ehens mihaela metab olic 2000 panel - Serum or Plasm a ALK.PHOS 53 U/L 38-126 Not Available [facility] (Lab) [address], [place], [address], Not Available 07/27/19 23 07/26/2022 Compr ehens mihaela metab olic 2000 panel - Serum or Plasm a ALT 20 U/L 1-34 Not Available [facility] (Lab) [address] [place], [address], Not Available 07/27/19 23 07/26/2022 Compr ehens mihaela metab olic 2000 panel - Serum or Plasm a AST 19 U/L 14-36 Not Available [facility] (Lab) [address] [place], [address], Not Available 07/27/19 23 07/26/2022 Compr ehens mihaela metab olic 2000 panel - Serum or Plasm a ALB 4.6 g/dl 3.5-5. 0 Not Available [facility] (Lab) [address], [place], [address], Not Available 07/27/19 23 07/26/2022 Compr ehens mihaela metab olic 2000 panel - Serum or Plasm a TBIL 0.40 mg/dl 0.20-1 .30 Not Available [facility] (Lab) [address], [place], [address], Not Available 07/27/19 23 07/26/2022 Compr ehens mihaela metab olic 2000 panel - Serum or Plasm a DBIL 0.00 mg/dl 0.00-0 .30 Not Available [facility] (Lab) [address], [place], [address], Not Available 07/27/19 23 07/26/2022 Compr ehens mihaela metab olic 2000 panel - Serum or Plasm a IBIL 0.10 mg/dl 0.00-1 .10 Not Available [facility] (Lab) [address], [place], [address], Not Available 07/27/19 23 07/26/2022 Compr ehens mihaela metab olic 2000 panel - Serum or Plasm a TP 7.7 g/dl 6.3-8. 2 Not Available [facility] (Lab) [address], [place], [address], Not Available 07/27/19 23 07/26/2022 Compr ehens mihaela metab olic 2000 panel - Serum or Plasm a CA 8.7 mg/dl 8.4-10 .2 Not Available [facility] (Lab) [address], [place], [address], Not Available 07/27/19 23 07/26/2022 Compr ehens mihaela metab olic 1999 panel - Serum or Plasm a IRON 91.0 ug/dl 37.0-1 70.0 Not Available [facility] (Lab) [address], [place], [address], Not Available 07/27/19 23 07/26/2022 Compr ehens mihaela metab olic 2000 panel - Serum or Plasm a GAP 5.0 mmol/ L 6.0-16 .0 Not Available [facility] (Lab) [address], [place], [address], Not Available 07/27/19 23 07/26/2022 Compr ehens mihaela metab olic 2000 panel - Serum or Plasm a B/C 18.75 7.00-3 0.00 Not Available [facility] (Lab) [address], [place], [address], Not Available 07/27/19 23 07/26/2022 Compr ehens mihaela metab olic 2000 panel - Serum or Plasm a OSMO 280 mos/k g 273-30 4 Not Available [facility] (Lab) [address], [place], [address], Not Available 07/27/19 23 07/26/2022 Compr ehens mihaela metab olic 2000 panel - Serum or Plasm a A/G RATIO 1.48 0.90-2 .30 Not Available [facility] (Lab) [address], [place], [address], Not Available 07/27/19 23 07/26/2022 Compr ehens mihaela metab olic 2000 panel - Serum or Plasm a GLOBULIN 3.1 g/dl 2.2-3. 9 Not Available [facility] (Lab) [address], [place], [address], Not Available 07/27/19 23 07/26/2022 Compr ehens mihaela metab olic 2000 panel - Serum or Plasm a GFR- AA Greate r Than 60 mL/mi n/1.7 3_m^2 Not Available [facility] (Lab) [address], [place], [address], Not Available 07/27/19 23 07/26/2022 Compr ehens mihaela metab olic 1999 panel - Serum or Plasm a GFR- OTHER Greate r Than 60 mL/mi n/1.7 3_m^2 It is recom navin d that for: GFR value s great er than 60 mL/mi n/1.7 3 sq.me ters - no addit ional renal evalu ation is requi red GFR value s less than 60 mL/mi n/1.7 3 sq.me ters - compl ete evalu ation for renal disea se GFR value s less than 60 mL/mi n/1.7 3 sq.me ters - consu ltati on with a Nephr ologi st Not Available [facility] (Lab) [address], [place], [address], Not Available 07/27/19 23 07/26/2022 Hemog lobin A1c/H emogl obin. total in Blood HGB A1C 4.8 % 4.0-6. 0 Not Available [facility] (Lab) [address], [place], [address], Not Available 07/27/19 23 07/26/2022 Hemog lobin A1c/H emogl obin. total in Blood INDICATION Indica muna an Ave. Glucos e of: Not Available [facility] (Lab) [address], [place], [address], Not Available 07/27/19 23 07/26/2022 Hemog lobin A1c/H emogl obin. total in Blood AVE.GLU 76-90 mg/dl for the last 30-120 Days Not Available [facility] (Lab) [address], [place], [address], Not Available 07/27/19 23 07/26/2022 Thyro tropi n [Unit s/vol ume] in Serum or Plasm a TSH 2.16 uIu/m L 0.47-4 .68 Not Available [facility] (Lab) [address], [place], [address], Not Available 07/27/19 23 07/26/2022 Coron danyelle heart disea se 2Y risk [#] Frami ngham .D'Ag yolie o 2000 CHOL 127 mg/dl 127-20 0 Not Available [facility] (Lab) [address], [place], [address], Not Available 07/27/19 23 07/26/2022 Coron danyelle heart disea se 2Y risk [#] Frami ngham .D'Ag yolie o 2000 TRIG 51 mg/dl 0-200 Not Available [facility] (Lab) [address], [place], [address], Not Available 07/27/19 23 07/26/2022 Coron danyelle heart disea se 2Y risk [#] Frami ngham .D'Ag yolie o 2000 HDL 53 mg/dl 35-80 Not Available [facility] (Lab) [address], [place], [address], Not Available 07/27/19 23 07/26/2022 Coron danyelle heart disea se 2Y risk [#] Frami ngham .D'Ag yolie o 2000 LDL 63.8 mg/dl 0.0-13 0.0 Not Available [facility] (Lab) [address], [place], [address], Not Available 07/27/19 23 07/26/2022 Coron danyelle heart disea se 2Y risk [#] Frami ngham .D'Ag yolie o 2000 VLDL. 10 mg/dl 2-30 Not Available [facility] (Lab) [address], [place], [address], Not Available 07/27/19 23 07/26/2022 Coron danyelle heart disea se 2Y risk [#] Frami ngham .D'Ag yolie o 1999 CHOL-HDL 2.4 0.0-5. 0 [place] stero l/HDL Ratio (Risk assoc iated with tabatha stero l/HDL ratio ) _ Risk Femal e Ratio Male Ratio 1/2 [place] 3.27 4.43 [place] 4.44 4.97 2 x [place] 7.05 9.55 3 x [place] 11.04 23.39 Not Available [facility] (Lab) [address], [place], [address], Not Available 08/11/19 24 08/11/2023 Compr ehens mihaela metab olic 2000 panel - Serum or Plasm a NA 139 mmol/ L 137-14 5 Not Available [facility] (Lab) [address], [place], [address], Not Available 08/11/19 24 08/11/2023 Compr ehens mihaela metab olic 2000 panel - Serum or Plasm a K+ 4.0 mmol/ L 3.5-5. 1 Not Available [facility] (Lab) [address], [place], [address], Not Available 08/11/19 24 08/11/2023 Compr ehens mihaela metab olic 2000 panel - Serum or Plasm a CL 104 mmol/ L 98-107 Not Available [facility] (Lab) [address], [place], [address], Not Available 08/11/19 24 08/11/2023 Compr ehens mihaela metab olic 2000 panel - Serum or Plasm a CO2 28 mmol/ L 22-30 Not Available [facility] (Lab) [address], [place], [address], Not Available 08/11/19 24 08/11/2023 Compr ehens mihaela metab olic 2000 panel - Serum or Plasm a BUN 18.0 mg/dL 7.0-17 .0 Not Available [facility] (Lab) [address], [place], [address], Not Available 08/11/19 24 08/11/2023 Compr ehens mihaela metab olic 2000 panel - Serum or Plasm a CREAT 0.9 mg/dl 0.5-1. 0 Not Available [facility] (Lab) [address], [place], [address], Not Available 08/11/19 24 08/11/2023 Compr ehens mihaela metab olic 2000 panel - Serum or Plasm a GLUC 93 mg/dL 70-106 Not Available [facility] (Lab) [address], [place], [address], Not Available 08/11/19 24 08/11/2023 Compr ehens mihaela metab olic 2000 panel - Serum or Plasm a ALK.PHOS 44 U/L 38-126 Not Available [facility] (Lab) [address], [place], [address], Not Available 08/11/19 24 08/11/2023 Compr ehens mihaela metab olic 2000 panel - Serum or Plasm a ALT 20 U/L 1-34 Not Available [facility] (Lab) [address] [place], [address], Not Available 08/11/19 24 08/11/2023 Compr ehens mihaela metab olic 2000 panel - Serum or Plasm a AST 22 U/L 14-36 Not Available [facility] (Lab) [address] [place], [address], Not Available 08/11/19 24 08/11/2023 Compr ehens mihaela metab olic 2000 panel - Serum or Plasm a ALB 4.6 g/dl 3.5-5. 0 Not Available [facility] (Lab) [address], [place], [address], Not Available 08/11/19 24 08/11/2023 Compr ehens mihaela metab olic 2000 panel - Serum or Plasm a TBIL 0.80 mg/dl 0.20-1 .30 Not Available [facility] (Lab) [address], [place], [address], Not Available 08/11/19 24 08/11/2023 Compr ehens mihaela metab olic 2000 panel - Serum or Plasm a DBIL 0.00 mg/dl 0.00-0 .30 Not Available [facility] (Lab) [address], [place], [address], Not Available 08/11/19 24 08/11/2023 Compr ehens mihaela metab olic 2000 panel - Serum or Plasm a IBIL 0.70 mg/dl 0.00-1 .10 Not Available [facility] (Lab) [address], [place], [address], Not Available 08/11/19 24 08/11/2023 Compr ehens mihaela metab olic 2000 panel - Serum or Plasm a TP 7.5 g/dl 6.3-8. 2 Not Available [facility] (Lab) [address], [place], [address], Not Available 08/11/19 24 08/11/2023 Compr ehens mihaela metab olic 2000 panel - Serum or Plasm a CA 9.4 mg/dl 8.4-10 .2 Not Available [facility] (Lab) [address] [place], [address], Not Available 08/11/19 24 08/11/2023 Compr ehens mihaela metab olic 1999 panel - Serum or Plasm a IRON 171.0 ug/dl 37.0-1 70.0 Not Available [facility] (Lab) [address], [place], [address], Not Available 08/11/19 24 08/11/2023 Compr ehens mihaela metab olic 1999 panel - Serum or Plasm a GAP 7.0 mmol/ L 6.0-16 .0 Not Available [facility] (Lab) [address], [place], [address], Not Available 08/11/19 24 08/11/2023 Compr ehens mihaela metab olic 1999 panel - Serum or Plasm a B/C 20.00 7.00-3 0.00 Not Available [facility] (Lab) [address], [place], [address], Not Available 08/11/19 24 08/11/2023 Compr ehens mihaela metab olic 1999 panel - Serum or Plasm a OSMO 279 mos/k g 273-30 4 Not Available [facility] (Lab) [address], [place], [address], Not Available 08/11/19 24 08/11/2023 Compr ehens mihaela metab olic 1999 panel - Serum or Plasm a A/G RATIO 1.59 0.90-2 .30 Not Available [facility] (Lab) [address], [place], [address], Not Available 08/11/19 24 08/11/2023 Compr ehens mihaela metab olic 1999 panel - Serum or Plasm a GLOBULIN 2.9 g/dl 2.2-3. 9 Not Available [facility] (Lab) [address], [place], [address], Not Available 08/11/19 24 08/11/2023 Compr ehens mihaela metab olic 1999 panel - Serum or Plasm a GFR- AA Greate r Than 60 mL/mi n/1.7 3_m^2 Not Available [facility] (Lab) [address], [place], [address], Not Available 08/11/19 24 08/11/2023 Compr ehens mihaela metab olic 1999 panel - Serum or Plasm a GFR- OTHER Greate r Than 60 mL/mi n/1.7 3_m^2 It is recom navin d that for: GFR value s great er than 60 mL/mi n/1.7 3 sq.me ters - no addit ional renal evalu ation is requi red GFR value s less than 60 mL/mi n/1.7 3 sq.me ters - compl ete evalu ation for renal disea se GFR value s less than 60 mL/mi n/1.7 3 sq.me ters - consu ltati on with a Nephr ologi st Not Available [facility] (Lab) [address], [place], [address], Not Available 08/11/19 24 08/11/2023 Thyro tropi n [Unit s/vol ume] in Serum or Plasm a TSH 3.07 uIu/m L 0.47-4 .68 Not Available [facility] (Lab) [address], [place], [address], Not Available 08/11/19 24 08/11/2023 CBC W Diffe renti al panel , metho d unspe cifie d - Blood WBC 5.9 10*3 3.9-10 .4 Not Available [facility] (Lab) [address], [place], [address], Not Available 08/11/19 24 08/11/2023 CBC W Diffe renti al panel , metho d unspe cifie d - Blood RBC 4.54 10*6 3.78-5 .29 Not Available [facility] (Lab) [address], [place], [address], Not Available 08/11/19 24 08/11/2023 CBC W Diffe renti al panel , metho d unspe cifie d - Blood HGB 13.8 g/dl 12.0-1 6.0 Not Available [facility] (Lab) [address], [place], [address], Not Available 08/11/19 24 08/11/2023 CBC W Diffe renti al panel , metho d unspe cifie d - Blood HCT 40.3 % 37.0-4 7.0 Not Available [facility] (Lab) [address], [place], [address], Not Available 08/11/19 24 08/11/2023 CBC W Diffe renti al panel , metho d unspe cifie d - Blood MCV 88.8 fl 82.0-1 00.0 Not Available [facility] (Lab) [address], [place], [address], Not Available 08/11/19 24 08/11/2023 CBC W Diffe renti al panel , metho d unspe cifie d - Blood MCH 30 pg 26-33 Not Available [facility] (Lab) [address], [place], [address], Not Available 08/11/19 24 08/11/2023 CBC W Diffe renti al panel , metho d unspe cifie d - Blood MCHC 34 g/dl 31-34 Not Available [facility] (Lab) [address], [place], [address], Not Available 08/11/19 24 08/11/2023 CBC W Diffe renti al panel , metho d unspe cifie d - Blood RDW 12.1 % 11.8-1 5.7 Not Available [facility] (Lab) [address], [place], [address], Not Available 08/11/19 24 08/11/2023 CBC W Diffe renti al panel , metho d unspe cifie d - Blood PLT 189 10*3 150-45 0 Not Available [facility] (Lab) [address], [place], [address], Not Available 08/11/19 24 08/11/2023 CBC W Diffe renti al panel , metho d unspe cifie d - Blood MPV 10.0 fl 8.7-12 .2 Not Available [facility] (Lab) [address], [place], [address], Not Available 08/11/19 24 08/11/2023 CBC W Diffe renti al panel , metho d unspe cifie d - Blood NEUT% 48.3 % 40.0-7 5.0 Not Available [facility] (Lab) [address], [place], [address], Not Available 08/11/19 24 08/11/2023 CBC W Diffe renti al panel , metho d unspe cifie d - Blood IMGRANS% 0.2 % 0.0-2. 0 Not Available [facility] (Lab) [address], [place], [address], Not Available 08/11/19 24 08/11/2023 CBC W Diffe renti al panel , metho d unspe cifie d - Blood LYMPH% 36.4 % 20.0-4 0.0 Not Available [facility] (Lab) [address], [place], [address], Not Available 08/11/19 24 08/11/2023 CBC W Diffe renti al panel , metho d unspe cifie d - Blood MONO% 7.3 % 0.0-10 .0 Not Available [facility] (Lab) [address], [place], [address], Not Available 08/11/19 24 08/11/2023 CBC W Diffe renti al panel , metho d unspe cifie d - Blood EOS% 7.1 % 0.0-4. 0 Not Available [facility] (Lab) [address], [place], [address], Not Available 08/11/19 24 08/11/2023 CBC W Diffe renti al panel , metho d unspe cifie d - Blood BASOS% 0.7 % 0.0-1. 0 Not Available [facility] (Lab) [address], [place], [address], Not Available 08/11/19 24 08/11/2023 CBC W Diffe renti al panel , metho d unspe cifie d - Blood ANC 2.84 10^3/ uL 1.50-8 .00 Not Available [facility] (Lab) [address], [place], [address], Not Available 08/11/19 24 08/11/2023 CBC W Diffe renti al panel , metho d unspe cifie d - Blood _ Not Available [facility] (Lab) [address], [place], [address], Not Available 08/11/19 24 08/11/2023 Hemog lobin A1c/H emogl obin. total in Blood HGB A1C 5.0 % 4.0-6. 0 Not Available [facility] (Lab) [address], [place], [address], Not Available 08/11/19 24 08/11/2023 Hemog lobin A1c/H emogl obin. total in Blood INDICATION Indica muna an Ave. Glucos e of: Not Available [facility] (Lab) [address], [place], [address], Not Available 08/11/19 24 08/11/2023 Hemog lobin A1c/H emogl obin. total in Blood AVE.GLU 76-90 mg/dl for the last 30-120 Days Not Available [facility] (Lab) [address], [place], [address], Not Available 08/11/19 24 08/11/2023 Coron danyelle heart disea se 2Y risk [#] Tyler TownsendD'Ag yolie o 2000 CHOL 151 mg/dl 127-20 0 Not Available [facility] (Lab) [address], [place], [address], Not Available 08/11/19 24 08/11/2023 Coron danyelle heart disea se 2Y risk [#] Tyler Gifford'Ag yolie o 2000 TRIG 52 mg/dl 0-200 Not Available [facility] (Lab) [address], [place], [address], Not Available 08/11/19 24 08/11/2023 Coron danyelle heart disea se 2Y risk [#] Tyler Gifford'Ag yolie o 2000 HDL 65 mg/dl 35-80 Not Available [facility] (Lab) [address], [place], [address], Not Available 08/11/19 24 08/11/2023 Coron danyelle heart disea se 2Y risk [#] Tyler TownsendD'Ag yolie o 2000 LDL 75.6 mg/dl 0.0-13 0.0 Not Available [facility] (Lab) [address], [place], [address], Not Available 08/11/19 24 08/11/2023 Coron danyelle heart disea se 2Y risk [#] Tyler charles .D'Ag yolie o 1999 VLDL. 10 mg/dl 2-30 Not Available [facility] (Lab) [address], [place], [address], Not Available 08/11/19 24 08/11/2023 Coron danyelle heart disea se 2Y risk [#] Frami ngangeli .D'Ag yolie o 1999 CHOL-HDL 2.3 0.0-5. 0 Tabatha stero l/HDL Ratio (Risk assoc iated with tabatha stero l/HDL ratio ) _ Risk Femal e Ratio Male Ratio 1/2 [place] 3.27 4.43 [place] 4.44 4.97 2 x [place] 7.05 9.55 3 x [place] 11.04 23.39 Not Available [facility] (Lab) [address], [place], [address], Not Available Result Notes Documentation Provider Name and Address Organization Details Recorded Time Xr, Shoulder, 2 Or More View : EXAM DESCRIPTION: XR RT SHOULDER REASON FOR STUDY: Pt c/o right shoulder pain. No known injury Duration: 2.5 months FINDINGS: Four views submitted without comparison. No acute fractures are identified. Alignment is normal. The glenohumeral and acromioclavicular joints are normal. IMPRESSION: Normal right shoulder evaluation. MF: MF Report ID: [id number] Reading Location: [id number] Raymundo Crandall MD Dictation Date: 08/03/2023 18:03 Aleisha Daly RN [address] [facility], [place], [address], [facility] 08/15/2023 15:15:17 Mri, Upper Extremity Joint(s), W/o Contrast : EXAM DESCRIPTION: MRI UP EXT-JNT WO CONT, RIGHT REASON FOR STUDY: Constant pain to the anterior and posterior aspects of the right shoulder. Pain worse when using right arm to push up or when trying to grab something. No known injury. Pain started May. Duration: 3 months. TECHNIQUE: Multiplanar, multisequence MRI of the right shoulder was performed without contrast. COMPARISON: None available FINDINGS: Rotator Cuff: The supraspinatus, infraspinatus, teres minor, subscapularis tendons are intact. There is no muscular atrophy. Biceps Tendon: The long head of the biceps tendon is located within the bicipital groove, without tear. Labrum: No tear is identified. Acromion and AC Joint: The coracoacromial and coracoclavicular ligaments are intact. No significant AC joint arthropathy. Type 2 acromion. Glenohumeral Articulation: No subluxation. No chondromalacia. Bones: No fracture. Joint and bursae: No joint effusion or bursal fluid. No loose bodies. Soft Tissues: The scapular notch, and quadrilateral space are unremarkable. There is no axillary lymphadenopathy. IMPRESSION: No evidence of rotator cuff tendinopathy or tear. No evidence of labral tear. JA: PATRICIA Report ID: [id number] Reading Location: [id number] Emmanuel Miguel MD Dictation Date: 08/24/2023 09:05 Aleisha Daly RN [address] [place], [address], [facility] 08/25/2023 12:11:26 Problems Name Problem SNOMED Code Status Onset Date Resolution Date Notes Provider Name and Address Organization Details Recorded Time Pain of right shoulder region Active Aleisha Daly RN [address] [place], [address], [facility] 4 15:47:34 Fracture of vertebral column 78808358 Active T3-T7 Aleisha Daly RN [address] [place], [address], [facility] 4 15:47:55 Pain of right shoulder joint 2807204055988 9100 Active 2023 ROSI TAMAYO NP [address] [place], [address], [facility] 4 16:11:12 Impingement syndrome of right shoulder region 7575949896201 02 Active 2023 ROSI TAMAYO NP [address] [place], [address], [facility] 4 14:33:48 Notes:reviewed 09-02 Problem Notes None recorded. Procedures Surgical History Date Name Laterality Status Provider Name and Address Organization Details Recorded Time 10/11/19 24 Injection [place] [address] [place] [address], [address], [facility] 10/11/2023 17:02:52 10/11/19 Risk for Inj/[place] [address] [place] [address], [address], [facility] 10/11/2023 17:02:43 09/29/19 23031: Group Therapy completed Chele Matthews DPT [address] [place] [address], [address], [facility] 09/29/2023 11:42:27 09/29/19 24 13141: Therapeutic Exercise completed [facility] [place], [address], [facility] 09/29/2023 11:42:15 09/29/19 24 49752: Theraputic Activities - Direct 1:1 completed Chele Matthews DPT [address], [address], [facility] 09/29/2023 09:54:08 09/29/19 Time completed Chele Mtathews DPT [address] [place], [place] [address] [place], [address], [facility] 09/29/2023 09:52:36 09/22/19 24 39526: Therapeutic Exercise [place], [address], [facility] 09/22/2023 10:45:15 09/22/19 Time completed Chele Matthews DPT [address] [place] [address], [address], [facility] 09/22/2023 10:45:07 09/14/19 88848: Neuromuscular Re-Education completed Chele Matthews DPT [address] [place] [address], [address], [facility] 09/14/2023 14:42:32 09/14/19 Time completed Chele Matthews DPT [address] [place] [address], [address], [facility] 09/14/2023 14:42:24 09/06/19 69368: Therapeutic Exercise completed Chele Matthews DPT [address] [place] [address], [address], [facility] 09/06/2023 17:04:24 09/06/19 38125: Low complexity PT Eval completed Chele Matthews DPT [address] [place] [address], [address], [facility] 09/06/2023 17:04:07 09/06/19 Time completed Chele Matthews DPT [address] [place] [address], [address], [facility] 09/06/2023 17:04:27 excision of skin completed Aleisha Daly RN [address] [place] [address], [address], [facility] 08/15/2023 15:48:35 extraction of wisdom tooth completed Angela Shea LPN [address] [place] [address], [address], [facility] 09/03/2023 16:59:50 Imaging Results None recorded. Procedure Notes None recorded. Medical Equipment None Reported. Allergies Allergen ID Allergen Name Allergen Category Reaction Reaction Severity Criticality Documentation Date Start Date Code Code System Note Provider Name and Address Organization Details Recorded Time 28795 propolis medicatio n itching Not available Not available 08/15/2023 8783 RxRick Daly RN [address] [place], [address], [facility] 4 15:46:13 83883 cinnamon preparati on food,medi cation itching Not available Not available 08/15/2023 85760 5 Morena Daly RN [address] [place], [address], [facility] 4 15:46:28 Medications Name Sig Start Date Stop Date Status Note LastModified by Organization Details LastModified Time Mirena 21 mcg/24 hr (up to 8 years) 52 mg intrauterin e device Take by intrauter ine route. active Not Available Not Available No t Available prednisone 20 mg tablet 2 tablets x 3 days, 1 tablet x 3 days, then 1/2 tablet x 3 days 2023 active Not Available Not Available Not Avai lable rizatriptan 10 mg tablet 08/14 completed Not Available Not Available Not Available topiramate 25 mg tablet 08/14 completed Not Available Not Available Not Available ondansetron 8 mg disintegrat ing tablet Place 1 tablet twice a day by transling ual route as needed. 08/14 completed Not Available Not Available Not Available diclofenac sodium 50 mg tablet,dilan yed release Take 1 tablet twice a day by oral route as directed, for right shoulder pain. active Not Available Not Available No t Available methylpredn isolone 4 mg tablets in a dose pack Take 1 dose pk by oral route. 08/14 completed Not Available Not Available Not Available hydrocortis one 2.5 % topical ointment 08/14 completed Not Available Not Available Not Available fluticasone propionate 50 mcg/actuati on nasal spray,suspe nsion SPRAY 1 SPRAY BY INTRANASA L ROUTE TWICE A DAY active Not Available Not Available No t Available amoxicillin 875 mg-potassiu m clavulanate 125 mg tablet Take 1 tablet every 12 hours by oral route for 10 days. 08/14 completed Not Available Not Available Not Available Solu-Medrol (PF) 125 mg/2 mL solution for injection Take 125 mg by injection route. 2023 active Not Available Not Available Not Avai lable Vitals Date Recorded Body height Body mass index (BMI) Body weight Oxygen saturation Oxygen saturation in Arterial blood by Pulse oximetry Heart rate Respiratory rate Body temperature Systolic And Diastolic Provider Name and Address Organization Details Last Updated DateTime 3 172.72 cm 33.2 kg/m2 40763 g 100 % 100 % 82 /min 16 /min 97.6 [degF] 122/78 mm[Hg] Paige Caba RN [address] [place], [address] [facility] 3 11:30:44 Date Recorded Oxygen saturation Oxygen saturation in Arterial blood by Pulse oximetry Heart rate Respiratory rate Body temperature Body weight Body mass index (BMI) Body height Systolic And Diastolic Provider Name and Address Organization Details Last Updated DateTime 4 100 % 100 % 79 /min 16 /min 97.4 [degF] 20433 g 27.2 kg/m2 172.72 cm 132/82 mm[Hg] Aleisha Daly RN [address] [place], [address] [facility] 4 15:40:07 Date Recorded Body height Oxygen saturation Oxygen saturation in Arterial blood by Pulse oximetry Heart rate Respiratory rate Body temperature Body mass index (BMI) Body weight Systolic And Diastolic Provider Name and Address Organization Details Last Updated DateTime 4 172.72 cm 99 % 99 % 78 /min 18 /min 98.5 [degF] 26.4 kg/m2 21014 g 124/75 mm[Hg] Luisa Black RN [address] [place], [address] [facility] 4 15:50:32 Date Recorded Body height Body mass index (BMI) Body weight Oxygen saturation Oxygen saturation in Arterial blood by Pulse oximetry Heart rate Respiratory rate Body temperature Systolic And Diastolic Provider Name and Address Organization Details Last Updated DateTime 4 172.72 cm 27 kg/m2 30966 g 100 % 100 % 75 /min 16 /min 98.4 [degF] 114/70 mm[Hg] Angela Shea, DIRECTOR OF CARDIOLOGY SERVICE LINE [address] [place], [address] [facility] 4 17:02:16 Date Recorded Body height Oxygen saturation Oxygen saturation in Arterial blood by Pulse oximetry Heart rate Respiratory rate Body temperature Body mass index (BMI) Body weight Systolic And Diastolic Provider Name and Address Organization Details Last Updated DateTime 4 172.72 cm 100 % 100 % 64 /min 16 /min 98 [degF] 28 kg/m2 40936 g 139/84 mm[Hg] Aleisha Daly RN [address] [place], [address] [facility] 4 15:37:02 Social History Question Answer Notes LastModified by Shangby Details LastModified Time Tobacco Smoking Status Never Smoker Paige Caba RN [address] [place], [address], [facility] 06/12/2022 11:27:16 What Is Your Level Of Caffeine Consumption? Heavy [email or web address] Information not available 09/03/2023 What Is Your Code Status? 0 [email or web address] Information not available 08/25/2023 What Was The Date Of Your Most Recent Tobacco Screening? 10/11/2023 [email or web address] Information not available 10/11/2023 Sex: Unknown Functional Status Question Answer Note LastModified by Shangby Details LastModified Time Do you use any illicit or recreational drugs? No [email or web address] Information not available 06/12/2022 Do you or have you ever used any other forms of tobacco or nicotine? No [email or web address] Information not available 06/12/2022 What is your level of alcohol consumption? Occasional Information not available 06/12/2022 Are you currently employed? Yes [email or web address] Information not available 06/12/2022 Are you able to care for yourself? Yes [email or web address] Information not available 06/12/2022 What is your occupation? [employer] [email or web address] Information not available 09/20/2021 Mental Status None recorded. Family History Relationship Description Onset Age of this Age Resolved Age Notes LastModified by Organization Details LastModified Time Father No current problems or disability [email or web address] Not available 11:27:34 Mother No current problems or disability [email or web address] Not available 11:27:34 Medical History Condition Response Coronary Artery Disease N Gout N Other N Atrial Fibrillation N Blood Diseases N Hyperthyroidism N Emphysema N Lung Disease N Hypothyroidism N Depression N COPD N Defects or Inherited Disease N Developmental or Behavioral Disorders N Pacemaker N Difficulty Swallowing N Gastrointestinal Disease N Deep Vein Thrombosis N Anxiety Disorder N Muscle, Joint, or Bone Problems Y Autoimmune disease N Pylonephritis N Family history of skin cancer N Difficulty seeing N Arthritis N Blood Clot N Acid Reflux (GERD) N Cancer N medical appliances N Stroke N Diabetes: Last eye exam? 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 Ear or Hearing Problems N history of skin cancer N Thyroid Problems N GI Problems N Anemia N Heart Attack ([place]) N Diabetes N Bleeding Disorder N Seizures/Epilepsy N Tuberculosis N Myocardial Infarction N Congestive Heart Failure (CHF) N Diverticulitis N Abuse/Domestic Violence N Asthma N Atrial Flutter N Peripheral Vascular Disease N Bipolar Disorder N Warfarin Management N Hepatitis N Neuropathy N Heart Disease N Pulmonary Embolism N Hypertension N Osteoporosis N Gynecological History Statement/Question Response Date of LMP 08/25/2023 Obstetrics History GPAL:G 0 P 0 0 0 0 Immunizations Vaccine Type Date Status Note Provider Nam e and Address Organization Details Recorded Time Hib, unspecified formulation 09/23/1993 completed Angela Shea LPN [address] [place], [address], [facility] 09/03/2023 16:57:35 Hib, unspecified formulation 11/23/1993 rafita Shea LPN [address] [place], [address], [facility] 09/03/2023 16:57:35 Hib, unspecified formulation 1992 completed Angela Shea LPN [address] [place], [address], [facility] 09/03/2023 16:57:35 Hib, unspecified formulation 02/24/1993 completed Angela Shabbir, DIRECTOR OF CARDIOLOGY SERVICE LINE [address], [place], [address], [facility] 09/03/2023 16:57:35 HPV9 06/21/2019 completed Angela Sahbbir, DIRECTOR OF CARDIOLOGY SERVICE LINE [address], [place], [address], [facility] 09/03/2023 16:57:35 MMR 08/05/1997 completed Angela Shabbir, DIRECTOR OF CARDIOLOGY SERVICE LINE [address], [place], [address], [facility] 09/03/2023 16:57:35 MMR 11/23/1993 completed Angela Shabbir, DIRECTOR OF CARDIOLOGY SERVICE LINE [address], [place], [address], [facility] 09/03/2023 16:57:35 Tdap 09/21/2019 completed Angela Shabbir, DIRECTOR OF CARDIOLOGY SERVICE LINE [address], [place], [address], [facility] 09/03/2023 16:57:35 Tdap 11/21/2014 completed Angela Shabbir, DIRECTOR OF CARDIOLOGY SERVICE LINE [address], [place], [address], [facility] 09/03/2023 16:57:35 DTP 1992 completed Angela Shabbir, DIRECTOR OF CARDIOLOGY SERVICE LINE [address], [place], [address], [facility] 09/03/2023 16:57:35 DTP 1992 completed Angela Shabbir, DIRECTOR OF CARDIOLOGY SERVICE LINE [address], [place], [address], [facility] 09/03/2023 16:57:35 DTP 02/24/1993 completed Angela Shabbir, DIRECTOR OF CARDIOLOGY SERVICE LINE [address], [place], [address], [facility] 09/03/2023 16:57:35 DTP 03/07/1994 completed Angela Shabbir, DIRECTOR OF CARDIOLOGY SERVICE LINE [address], [place], [address], [facility] 09/03/2023 16:57:35 OPV 08/05/1997 completed Angela Shea, DIRECTOR OF CARDIOLOGY SERVICE LINE [address], [place], [address], [facility] 09/03/2023 16:57:35 OPV 1992 completed Angela Salomonan, DIRECTOR OF CARDIOLOGY SERVICE LINE [address], [place], [address], [facility] 09/03/2023 16:57:35 OPV 1992 completed Angela Shabbir, DIRECTOR OF CARDIOLOGY SERVICE LINE [address], [place], [address], [facility] 09/03/2023 16:57:35 OPV 03/07/1994 completed Angela Shea, DIRECTOR OF CARDIOLOGY SERVICE LINE [address], [place], [address], [facility] 09/03/2023 16:57:35 Hep B, adolescent or pediatric 1992 completed Angela Shea, DIRECTOR OF CARDIOLOGY SERVICE LINE [address], [place], [address], [facility] 09/03/2023 16:57:35 Hep B, adolescent or pediatric 1992 completed Angela Shea, DIRECTOR OF CARDIOLOGY SERVICE LINE [address], [place], [address], [facility] 09/03/2023 16:57:35 Hep B, adolescent or pediatric 03/07/1994 completed Angela Shea, DIRECTOR OF CARDIOLOGY SERVICE LINE [address], [place], [address], [facility] 09/03/2023 16:57:35 Hep A, adult 06/21/2019 completed Angela Shea, DIRECTOR OF CARDIOLOGY SERVICE LINE [address], [place], [address], [facility] 09/03/2023 16:57:35 DTaP 08/05/1997 completed Angela Shea, DIRECTOR OF CARDIOLOGY SERVICE LINE [address], [place], [address], [facility] 09/03/2023 16:57:35 Influenza, split virus, quadrivalent, PF 02/07/2022 completed nAgela Shea LPN [address] [place] [address], [address], [facility] 09/03/2023 16:57:35 Past Encounters Encounter ID Performer Location Encounter Start Date Encounter Closed Date Diagnosis/Indication Diagnosis SNOMED-CT Code Diagnosis ICD10 Code Diagnosis Note [id number] NOT ON STAFF OP Lab/Rad/C ardio Test [address] [place] [address] 06/12/2022 11:23:00 06/13/2022 00:59:00 [id number] NOT ON STAFF OP Lab/Rad/C ardio Test [address] [place] [address] 07/26/2022 12:29:00 07/27/2022 00:59:00 [id number] NOT ON STAFF OP Lab/Rad/C ardio Test [address] [place] [address] 08/02/2023 15:45:00 08/03/2023 00:59:00 [id number] NOT ON STAFF OP Lab/Rad/C ardio Test [address] [place] [address] 08/11/2023 09:41:00 08/12/2023 00:59:00 [id number] NOT ON STAFF OP Lab/Rad/C ardio Test [address] [place] [address] 08/24/2023 08:22:00 08/25/2023 00:59:00 Health Concerns Section Related Observation LastModified by Organization Detai ls LastModified Time None Recorded Concern Status LastModified by Organization Details LastModified Time None Recorded Advance Directives Directive None Recorded Payers Insurance Date Sequence Insurance Name Policy Number Policy Sheth Covered Member ID Sheth Member ID Guarantor Name 09/03/2023 [employer] [id number] Juice Stern [id number] Juice Pena 08/29/2023 2 [facility] [place] () Juice Stern [id number] Juice Pena 09/03/2023 PRE-EMPLOYE E SCREENING Juice [facility] [id number] Juice Pena 05/16/2024 1 [facility] ( - PPO) Juice Pena [id number] Juice Pena Notes Date Note Type Note Provider Name and Address Organization Details Recorded Time 3 text/html Patient presents to clinic with complaints of sore throat that started yesterday. Patient states that she has been taking allergy medications and flonase daily for two weeks. 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 Reviewed history, vitals, allergies, and nurses notes. Siria Argueta, TRANSMITTER CHIEF-PERSONNEL QUALITY ASSURANCE AUDITOR [address] [place] [address], [address], [facility] 06/12/2022 12:08:33 4 text/html ShoulderReported bypatient.Hand Dominance:right Location:right; posterior Quality:aching Severity:mild Duration:3 months Context:cannot identify Alleviating Factors:rest; limited weight bearing; NSAIDs Aggravating Factors:lifting; carrying; pushing/pulling; ROM; weightbearing Associated Symptoms:no numbness; no tingling;radiation down arm Prior Imaging:x ray Juice is seen in the clinic today with complaints of right shoulder pain. She says her shoulder has been bothering her since the second week of May when she got a new mattress. She says that she helped move the old mattress out of her bedroom but denies injuring herself when doing so. She says her new one is firmer and thought that maybe the change was causing her to have discomfort and it would just take some getting used to, however her shoulder pain persists. She said it started out as occasional soreness but it has progressively gotten worse. She has taken ibuprofen occasionally and that does help a little. It is exacerbated with lifting and pulling. She says she has a difficult time reaching into the backseat of her car or lifting her backpack out of the floorboard of the passenger side of her car. She locates her pain in the posterior shoulder and says that it radiates to the front of her shoulder. She also says that sometimes the pain will radiate down into her elbow. She denies any numbness and tingling. She has not tried any topical creams or ice. She has not done any physical therapy or tried any injections. The ROS is reviewed with the patient and a copy is located in the chart. ROSI TAMAYO NP [address] [place], [address], [facility] 08/15/2023 18:40:59 4 text/html ShoulderReported bypatient.Hand Dominance:right Location:right; posterior Quality:aching Severity:mild Duration:3 months Context:cannot identify Alleviating Factors:rest; limited weight bearing; NSAIDs Aggravating Factors:lifting; carrying; pushing/pulling; ROM; weightbearing Associated Symptoms:no numbness; no tingling;radiation down arm Prior Imaging:x ray; MRI Previous Injections:none Previous PT:none Juice is seen in the clinic today for follow-up of her right shoulder pain. She recently had an MRI of her right shoulder and is here today to go over those results. At her prior appointment she was started on some diclofenac and says that that has helped some with the constant ache that she had in her shoulder, however she still has some pain with lifting and pulling things. She has no new complaints today. ROSI TAMAYO NP [address] [place], [address], [facility] 09/04/2023 14:36:26 4 text/html Patient has allergy to honey and was eating honey mustard pretzels approx. 45 minutes ago. Now itching and getting progressively worse. OZ MALONEY [address] [place], [address], [facility] 09/03/2023 18:00:35 4 text/html Reason for Referral: Right Shoulder pain History of Injury: Pt. noted this pain back in May with no obvious mechanism Symptoms: Shoulder pain with overhead reaching, pinching qualitySeverity: 0/10 at best, 8/10 at worst, 0/10 currentlyDenies any numbness or tingling. Aggravating Factors: reaching, reaching behind, putting a coatAlleviating Factors: NSAIDs help to a small degree. Prior Studies: Radiographs, MRI was ordered (type 2 acromion)Prior Treatment: Follow Up: October 15 Outcome Measure: QuickDASH Past Medical: no prior shoulder injury or surgery. Job duties: frequently lifting boxes Chele Matthews DPT [address] [place], [address], [facility] 09/06/2023 17:14:17 4 text/html Juice reports she is not feeling acute pain while performing the exercises, but her pain appears to be worsened with activity following the routine. Chele Matthews DPT [address] [place], [address], [facility] 09/22/2023 10:47:10 4 text/html Reason for Referral: Right Shoulder pain History of Injury: Pt. noted this pain back in May with no obvious mechanism Symptoms: Shoulder pain with overhead reaching, pinching qualitySeverity: 0/10 at best, 8/10 at worst, 0/10 currentlyDenies any numbness or tingling. Aggravating Factors: reaching, reaching behind, putting a coatAlleviating Factors: NSAIDs help to a small degree. Prior Studies: Radiographs, MRI was ordered (type 2 acromion Follow Up: October 15 Outcome Measure: QuickDASH Past Medical: no prior shoulder injury or surgery. Job duties: frequently lifting boxes Ronalneva ANUSHA Matthews [address] [place], [address], [facility] 09/29/2023 11:42:38 4 text/html ShoulderReported bypatient.Hand Dominance:right Location:right; posterior Quality:aching Severity:mild Duration:4 months Context:cannot identify Alleviating Factors:rest; limited weight bearing; NSAIDs Aggravating Factors:lifting; carrying; pushing/pulling; ROM; weightbearing Associated Symptoms:no numbness; no tingling;radiation down arm Prior Imaging:x ray; MRI Previous Injections:none Previous PT:did not help Juice is seen in the clinic today for follow-up of her right shoulder pain. She recently attended some physical therapy sessions but stated that she cannot complete all of them due to to the fact that it was causing her to have more pain in her shoulder. She says she continues to have difficulty lifting things. She rates her pain a 2/10 today. She has no new complaints today. ROSI TAMAYO NP [address] [place], [id number], [place] [facility] 10/11/2023 17:09:56 OBGyn Episode No OBEpisode recorded.
[2024-11-28 11:22] LABS: Hematocrit 35.5 % (37.0-47.0); Hemoglobin 12.5 g/dL (12.0-15.0); Mean Corpuscular HGB Conc 35.2 g/dl (32-36); Mean Corpuscular Hemoglobin 31.4 pg (26-34); Mean Corpuscular Volume 89.2 fl (80-100); Platelet Count Result 173 k/mm3 (150-375); Red Blood Count 3.98 M/mm3 (4.2-5.4); White Blood Count 6.5 K/mm3 (4.5-10.0)
[2024-11-28 11:47] LABS: Glucose Urine UA Negative (Negative); Leukocyte Esterase Ur Trace LEU/UL (Negative); Nitrate Urine Negative (Negative); Non Pathogenic Casts 0-2; Specific Grav Ur 1.014 (1.001-1.035)
[2024-11-28 11:49] LABS: Add Urine Microscopic? YES; Appearance Urine Sl Cloudy (Clear)
[2024-11-28 12:17] LABS: Syphilis IgG/IgM Antibody Non-Reactive (Nonreactive)
[2024-11-28 12:19] LABS: Thyroid Stimulating Hormone 1.520 uIU/mL (0.465-4.680)
[2024-11-28 12:29] LABS: HIV 1/2 Ab P24 Ag Result Negative (Negative)
[2024-11-28 13:07] LABS: Hepatitis B Surface Antigen 0.90 S/C; Hepatitis B Surface Antigen Negative (Negative)
[2024-12-02 15:09] LABS: Varicella-Zoster Ab, IgG Reactive (Non Reactive); Varicella-Zoster Ab, IgM <0.91 index (0.00-0.90)
== END 2024-11-28 10:47 | disposition home or self-care (01) ==
LOC: ANHLAB 10:48
PROVIDERS: PCP Physician Assistant; Visit Provider Obstetrics & Gynecology
DX: Z34.90 Encounter for supervision of normal pregnancy, unspecified, unspecified trimester (principal); Z20.828 Contact with and (suspected) exposure to other viral communicable diseases
CPT/HCPCS: 36415; 81001; 84443; 85027; 86593; 86703; 86762; 86787; 86803; 86850; 86900; 86901; 87340; G0432